=== PATIENT | female | born 1995 | race Caucasian/White ===

== ENCOUNTER 2020-12-17 15:58 | Emergency (ER) | payer OTHER, SELFPAY ==
--- NOTE | ~2020-12-17 | CT_ITS ---
Indication: Trauma EXAMINATION: CT brain, CT cervical spine. Axial imaging with coronal and sagittal reformatted images. Radiation dose [address] brain; There is no midline shift. There is no mass effect. There is no hemorrhage. The basilar cisterns appear patent. The posterior fossa is grossly within normal limits. There is no extra-axial collection. Ventricles within normal limits. The perez-white matter is fairly well preserved. Review of the bone windows demonstrates patent sinuses. No fracture is seen. CT cervical spine; No fracture or dislocation. CT/CT head/brain wo con IMPRESSION: Negative acute noncontrast CT of the brain. No fracture or dislocation of the cervical spine.
--- NOTE | ~2020-12-17 | CT_ITS ---
Indication: Trauma EXAMINATION: CT brain, CT cervical spine. Axial imaging with coronal and sagittal reformatted images. Radiation dose [address] brain; There is no midline shift. There is no mass effect. There is no hemorrhage. The basilar cisterns appear patent. The posterior fossa is grossly within normal limits. There is no extra-axial collection. Ventricles within normal limits. The perez-white matter is fairly well preserved. Review of the bone windows demonstrates patent sinuses. No fracture is seen. CT cervical spine; No fracture or dislocation. CT/CT cervical spine wo con IMPRESSION: Negative acute noncontrast CT of the brain. No fracture or dislocation of the cervical spine.
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
[2020-12-17 16:16] VITALS: BP 101/69; PULSE 80; RESP 18; TEMP 36.6; O2SAT 100; BMI 18.6
[2020-12-17 17:32] VITALS: BP 101/59; PULSE 75; RESP 18; TEMP 36.6; O2SAT 99
[2020-12-17 18:43] VITALS: BP 108/69; PULSE 84; RESP 16; TEMP 36.8; O2SAT 100
[2020-12-17] MEDS: Acetaminophen 325 MG TABLET 650 MG PO (19:52)
[2020-12-17] MEDS: Cyclobenzaprine HCl 10 MG TABLET PO (19:52)
== END 2020-12-17 20:03 | disposition home or self-care (01) ==
PROVIDERS: Emergency Provider Emergency Medicine; PCP Internal Medicine
DX: S06.0X0A Concussion without loss of consciousness, initial encounter (principal); S13.4XXA Sprain of ligaments of cervical spine, initial encounter; S29.012A Strain of muscle and tendon of back wall of thorax, initial encounter; V89.2XXA Person injured in unspecified motor-vehicle accident, traffic, initial encounter; Y93.9 Activity, unspecified; Y92.410 Unspecified street and highway as the place of occurrence of the external cause; Y99.9 Unspecified external cause status
CPT/HCPCS: 70450; 72125; 99284

== ENCOUNTER → 2023-04-18 08:02 | Outpatient (BNVA) | payer OTHER, SELFPAY | PROVIDERS: PCP Internal Medicine; Visit Provider Physician Assistant Medical | DX: Z77.21 Contact with and (suspected) exposure to potentially hazardous body fluids (principal) | CPT/HCPCS: 99202 ==

== ENCOUNTER → 2024-03-10 14:19 | Outpatient (BNVA) | payer OTHER, SELFPAY | PROVIDERS: PCP Internal Medicine; Visit Provider Registered Nurse | DX: S09.90XA Unspecified injury of head, initial encounter (principal); T14.8XXA Other injury of unspecified body region, initial encounter; Y04.2XXA Assault by strike against or bumped into by another person, initial encounter; R42 Dizziness and giddiness; R51.9 Headache, unspecified; M54.2 Cervicalgia | CPT/HCPCS: 99203 ==

== ENCOUNTER → 2024-03-13 14:57 | Outpatient (BNVA) | payer OTHER, SELFPAY | PROVIDERS: PCP Internal Medicine; Visit Provider Physician Assistant | DX: S09.90XA Unspecified injury of head, initial encounter (principal); Y04.2XXA Assault by strike against or bumped into by another person, initial encounter; R04.0 Epistaxis; R42 Dizziness and giddiness; Z02.79 Encounter for issue of other medical certificate | CPT/HCPCS: 99213 ==